=== PATIENT | female | born 1960 | race Caucasian/White ===

== ENCOUNTER 2016-11-27 07:15 | Inpatient (IN) | payer MEDICAID, MEDICARE ==
[2017-01-21] MEDS ORDERED: Scopolamine 1.5 MG Transdermal Patch TOP SCH (05:30)
[2017-01-21] MEDS ORDERED: Celecoxib 200 MG Cap PO ONE (05:30)
[2017-01-21] MEDS ORDERED: Gabapentin 300 MG Cap PO ONE (05:30)
[2017-01-21] MEDS ORDERED: Acetaminophen 500 MG Tab PO ONE (05:30)
[2017-01-21] MEDS ORDERED: cefOXitin 2 GM Vial ONE (06:50)
[2017-01-21] MEDS ORDERED: Bupivacaine 0.5%/EPINEPHrine 1:200,000 50 ML MDV ONE (06:50)
[2017-01-21] MEDS ORDERED: Ketamine 500 MG/5 ML MDV IV SCH (07:00)
[2017-01-21] MEDS ORDERED: Succinylcholine/Normal Saline 200 MG/10 ML Syringe ONE (07:02)
[2017-01-21] MEDS ORDERED: Dexamethasone 4 MG/ML SDV ONE (07:02)
[2017-01-21] MEDS ORDERED: Ondansetron 4 MG/2 ML SDV ONE (07:02)
[2017-01-21] MEDS ORDERED: Rocuronium 50 MG/5 ML Vial ONE (07:02)
[2017-01-21] MEDS ORDERED: Propofol 200 MG/20 ML SDV ONE (07:02)
[2017-01-21] MEDS ORDERED: fentaNYL 250 MCG/5 ML SDV ONE (07:03)
[2017-01-21] MEDS ORDERED: Neostigmine Methylsulfate 1 MG/ML 5 ML Syringe ONE (07:03)
[2017-01-21] MEDS ORDERED: Albuterol/Ipratropium 3.0-0.5 MG/3 ML Neb Soln NEB ONE (07:30)
[2017-01-21] MEDS ORDERED: Lidocaine 2% 100 MG/5 ML Syringe IVPUSH ONE (07:30)
[2017-01-21] MEDS ORDERED: Ropivacaine 56 ML, Dexamethasone 8 MG, EPINEPHrine 0.4 MG, Sodium Chloride 0.9% 21.6 ML NERVRT SCH ×4 (07:30)
[2017-01-21] MEDS ORDERED: Dextrose 5%-Lactated Ringers 1,000 ML IV SCH ×3 (07:30→17:00)
[2017-01-21] MEDS: cefOXitin 2 GM in Sodium Chloride 0.9% 50 ML IV ONE ×2 (07:37→13:08)
[2017-01-21] MEDS ORDERED: Insulin Aspart 100 Units/ML 3 ML Pen SUBCUT ONE (10:00)
[2017-01-21] MEDS ORDERED: hydrOXYzine HCl 50 MG/ML SDV IM ONE (10:42)
[2017-01-21] MEDS: Lidocaine 0.4%/D5W 2 GM/500 ML BAG IV SCH ×2 (11:20→23:48)
[2017-01-21] MEDS ORDERED: Labetalol 20 MG/4 ML Syringe IVPUSH PRN (11:43)
[2017-01-21] MEDS ORDERED: SCOPOLAMINE PATCH ASK TOP SCH (11:43)
[2017-01-21] MEDS ORDERED: Ondansetron 4 MG/2 ML SDV IVPUSH PRN (11:43)
[2017-01-21] MEDS ORDERED: hydrOXYzine HCl 50 MG/ML SDV IM PRN (11:43)
[2017-01-21] MEDS ORDERED: Metoclopramide 10 MG/2 ML SDV IV PRN (11:47)
[2017-01-21] MEDS ORDERED: diphenhydrAMINE 50 MG/ML SDV IV PRN (11:48)
[2017-01-21] MEDS ORDERED: Albuterol/Ipratropium 3.0-0.5 MG/3 ML Neb Soln INH PRN (11:50)
[2017-01-21] MEDS: Acetaminophen Soln 650 MG/20.3 ML UD Cup PO SCH ×2 (13:35→20:38)
[2017-01-21] MEDS: Pantoprazole 40 MG Vial IVPUSH SCH (13:35)
[2017-01-21] MEDS: cefOXitin 2 GM in Sodium Chloride 0.9% 50 ML IV SCH ×2 (13:35→20:38)
[2017-01-21] MEDS ORDERED: Gabapentin 250 MG/5 ML Solution ML 470 ML Bottle PO SCH (14:00)
[2017-01-21] MEDS: Albuterol/Ipratropium 3.0-0.5 MG/3 ML Neb Soln INH SCH ×2 (14:41→20:38)
[2017-01-21] MEDS: Insulin Aspart 100 Units/ML 3 ML Pen SUBCUT PRN ×2 (16:46→22:14)
[2017-01-21] MEDS: MVI, Adult with Vitamin K 10 ML, Thiamine 200 MG, Chromium/Copper/Mang/Selen/Zn 1 ML in... IV SCH ×4 (17:31)
[2017-01-21] MEDS: Heparin Sodium 5,000 Units/ML Vial SUBCUT SCH (17:31)
[2017-01-22] MEDS: cefOXitin 2 GM in Sodium Chloride 0.9% 50 ML IV SCH ×4 (02:15→21:20)
[2017-01-22] MEDS: Acetaminophen Soln 650 MG/20.3 ML UD Cup PO SCH ×4 (02:17→21:20)
[2017-01-22] MEDS ORDERED: Iohexol 647 MG/ML 50 ML SDV PO STA (02:30)
[2017-01-22] MEDS: Heparin Sodium 5,000 Units/ML Vial SUBCUT SCH ×2 (04:59→17:47)
[2017-01-22] MEDS: Insulin Aspart 100 Units/ML 3 ML Pen SUBCUT PRN ×4 (04:59→21:53)
[2017-01-22] MEDS: Albuterol/Ipratropium 3.0-0.5 MG/3 ML Neb Soln INH SCH ×4 (07:13→21:20)
--- NOTE | 2017-01-22 09:32 | CR ---
UGI wo KUB HISTORY: Eval RNY GBP FINDINGS: After administration of oral contrast, upright views were obtained. Post operative changes gastric bypass. Surgical drains in place. No evidence for leak. Contrast passes freely into proxima l small bowel loops. IMPRESSION: No evidence for leak or obstruction.
[2017-01-22] MEDS: Lisinopril 20 MG Tab PO SCH (10:24)
[2017-01-22] MEDS: Celecoxib 200 MG Cap PO SCH (10:24)
[2017-01-22] MEDS: amLODIPine 5 MG Tab PO SCH (10:24)
[2017-01-22] MEDS: SCOPOLAMINE PATCH CHECK TOP SCH (10:25)
--- NOTE | 2017-01-22 10:46 | PN ---
DATE OF SERVICE: 01/22/2017 SUBJECTIVE: Kadi upper GI was normal this morning. Her pain has been well managed. She has been ambulating. She did have quite a bit in the way of urinary frequencies, so Wilson catheter was put back in. She is tolerating a step-1 diet. Vital signs otherwise have been stable. REVIEW OF SYSTEMS: Remainder of review of systems negative for any pertinent positives and negatives. OBJECTIVE: GENERAL: Kadi Faustin is a 56-year-old female. She is alert and orientated. VITAL SIGNS: TPR is 100.5, 95, 16, blood pressure 154/76. HEENT: Negative. NECK: Supple. HEART: Regular rate and rhythm. LUNGS: Clear. ABDOMEN: Dressings dry and intact. Abdominal binder is on. EXTREMITIES: SCDs are on, and there is no peripheral edema. ASSESSMENT: Removal of laparoscopic gastric band system, of laparoscopic Anmol-en- Y gastric bypass surgery, liver biopsy, and partial gastrectomy for laparoscopic gastric band status with intolerance to lap band, morbid obesity, hepatomegaly, and devascularized portion of the fundus, date of surgery 01/21/2017. PLAN: Discontinue Wilson. Discontinue continuous pulse ox and telemetry after lidocaine is in, for a step-2 gastric bypass diet without cereal for lunch. Blood sugars have been 327, 301, and 341, so start metformin 1000 mg b.i.d. Other home medications that were started include Norvasc 5 mg daily, Spiriva 1 capsule inhalation daily, lisinopril 20 mg p.o. daily, ProAir 2 inhalations q.i.d. Good pulmonary toilet encouraged. Dressing off, may shower. We will evaluate p.r.n. or in a.m. Shauna العلي PA-C /[id number]
[2017-01-22] MEDS: Pantoprazole 40 MG Vial IVPUSH SCH (14:06)
[2017-01-22] MEDS: MVI, Adult with Vitamin K 10 ML, Thiamine 200 MG, Chromium/Copper/Mang/Selen/Zn 1 ML in... IV SCH ×8 (14:09→15:18)
[2017-01-22] MEDS ORDERED: Lactated Ringers 1,000 ML IV SCH (16:15)
[2017-01-22] MEDS: metFORMIN 500 MG Tab PO SCH (16:26)
[2017-01-23] MEDS: cefOXitin 2 GM in Sodium Chloride 0.9% 50 ML IV SCH ×2 (02:30→08:40)
[2017-01-23] MEDS: Acetaminophen Soln 650 MG/20.3 ML UD Cup PO SCH ×2 (02:30→08:41)
[2017-01-23 02:37] VITALS: BP 150/90
[2017-01-23] MEDS: Insulin Aspart 100 Units/ML 3 ML Pen SUBCUT PRN ×2 (05:34→10:53)
[2017-01-23] MEDS: Heparin Sodium 5,000 Units/ML Vial SUBCUT SCH (06:01)
[2017-01-23] MEDS: Albuterol/Ipratropium 3.0-0.5 MG/3 ML Neb Soln INH SCH (07:25)
[2017-01-23] MEDS: metFORMIN 500 MG Tab PO SCH (08:40)
[2017-01-23] MEDS: Celecoxib 200 MG Cap PO SCH (08:41)
[2017-01-23] MEDS: amLODIPine 5 MG Tab PO SCH (08:41)
[2017-01-23] MEDS: Lisinopril 20 MG Tab PO SCH (08:42)
[2017-01-23] MEDS: SCOPOLAMINE PATCH CHECK TOP SCH (08:53)
[2017-01-23] MEDS ORDERED: Cyanocobalamin (Vitamin B12) 1,000 MCG/ML SDV IM ONE (09:00)
--- NOTE | 2017-01-24 00:32 | DISCH ---
ADMISSION DIAGNOSES: Morbid obesity, diabetes mellitus, last hemoglobin A1c 7.4, coronary artery disease, dyslipidemia, essential hypertension, history of gastroesophageal reflux disease, headaches, hypothyroidism, myocardial infarct at age less than 60, hyperlipidemia, low back pain, tobacco dependence in remission, and alcohol abuse, episodic drinking behavior. DISCHARGE DIAGNOSES: Removal of laparoscopic gastric band system, laparoscopic Anmol-en-Y gastric bypass surgery, liver biopsy, and partial gastrectomy for laparoscopy gastric band status with intolerance to lap band, morbid obesity, hepatomegaly, devascularized portion of the fundus. Date of surgery 01/21/2017. HISTORY: Kadi Faustin is a 56-year-old female with longstanding history of morbid obesity and increasingly comorbidities. After preoperative evaluation and discussion of possible risks and possible complications, she wished to proceed with surgical procedure. HOSPITAL COURSE: Kadi had her surgery on 01/21/2017. She had no operative complications. On postop day #1, she was started on step 2 gastric bypass diet without cereal. Her blood sugars on postop day #1 were in the 300. She was on metformin 1000 mg b.i.d. and Januvia 100 mg. At the time of discharge, blood sugars were 231, 235. On postop day #2, Kadi received vitamin B12 1000 mcg IM injection, dietary instructions. Her vital signs were stable. Her activity was good and she was ready to be discharged to home. PHYSICAL EXAMINATION: GENERAL: Kadi Faustin is a 56-year-old female. VITAL SIGNS: Height is 5 feet 4 inches. Weight is 247 pounds. TPR is 99.5, 98, 16. Blood pressure is 150/90. HEENT: Negative. NECK: Supple. HEART: Regular rate and rhythm. LUNGS: Clear. ABDOMEN: 4x4 over TRISTEN drain site. Incisions look good. Sutures in place. Soft, minimally tender. Abdominal binder is on. EXTREMITIES: Without peripheral edema. DISPOSITION: Discharged to home. CONDITION: Stable and improving. FOLLOWUP APPOINTMENT: With Shauna العلي PA-C, on 01/30/2017 at 11:00 a.m. NEW PRESCRIPTIONS: Tylenol 650 mg oral q.6 hours p.r.n. pain, Celebrex 200 mg orally p.o. once daily, #7, Januvia 100 mg oral daily #30, metformin immediate release 1000 mg oral twice daily with meals #60. At time of discharge, she is to continue taking aspirin 81 mg p.o. daily, albuterol inhaler 2 puffs four times a day p.r.n., vitamin B12 1000 mcg sublingual daily, lisinopril 20 mg oral daily, multivitamin chewable complete 1 tablet twice daily, potassium gluconate 595 mg oral daily, Norvasc 5 mg oral daily, Lipitor 40 mg oral daily, and Spiriva inhaler one capsule inhaled daily. DIET: After discharge, step-2 gastric bypass diet without cereal. Drink 8 to 10 glasses of water a day. ACTIVITY: As tolerated. No lifting greater than 10 pounds for 2 weeks. Shower bathing, may shower. Notify provider if any fever, increased pain, nausea, or vomiting. Keep site clean and dry. Wear abdominal binder for 2 weeks and then as tolerated. SPECIAL INSTRUCTION: Use incentive spirometer 10 times every hour while awake for 2 weeks. Check blood sugars twice a day.
--- NOTE | 2017-01-24 08:37 | OR ---
DATE OF PROCEDURE: 01/21/2017 PREOPERATIVE DIAGNOSIS: Morbid obesity with intolerance of laparoscopic adjustable gastric band. POSTOPERATIVE DIAGNOSES: 1. Morbid obesity with intolerance of laparoscopic adjustable gastric band. 2. Hepatomegaly. 3. Devascularized portion of gastric fundus status post takedown of gastric band. OPERATIVE PROCEDURES: Diagnostic laparoscopy with: 1. Removal of laparoscopic adjustable gastric band system (84350). 2. Formation of a Anmol-en-Y gastric bypass with long limb gastroenterostomy (09533). 3. A Woody-Cut needle liver biopsy (70634). 4. Partial gastrectomy (55171). ANESTHESIA: General. LABORATORY SUPERVISOR: Shauna العلي PA-C. INDICATION FOR PROCEDURE: This is a 56-year-old with longstanding morbid obesity. She had laparoscopic adjustable gastric band placed, but has not tolerated that very well. In addition, she has recurrent morbid obesity and progressively worsening type 2 diabetes. Given this, the band was to be removed and the patient converted to a Anmol-en-Y gastric bypass. The potential risks of the procedure including bleeding, infection, leaks from various GI tract closures, problems with bowel obstruction over time, as well as the possibility of cardiopulmonary, septic, or hemorrhagic complications potentially leading to were discussed, and the patient wishes to proceed. Additionally, the patient had recent appendicitis which was treated nonoperatively and after discussion, the plan will be to look down into the area of the cecum. If the appendix is easily visualized and dissected free, we will remove it. Otherwise, it will likely be that it's matted down and involving intense inflammatory response, we will leave it in place for today. DETAILS OF PROCEDURE: The patient was taken to the operating room and placed in a supine position. After general endotracheal anesthesia was induced, the abdomen was prepped and draped. The patient was converted to lithotomy position. Bilateral subcostal transversus abdominis plane blocks were placed using ropivacaine, dexamethasone, epinephrine in 40 mL of saline on each side. This was done using continuous ultrasound guidance. Wilson catheter was inserted along the gastrointestinal catheter, and the abdomen was prepped and draped. A 15 cm inferior and 5 cm left of xiphoid process, transverse incision was made. The peritoneal cavity was entered under direct vision with an Optiview trocar and inflated to 15 mmHg of CO2. Laparoscope was then reinserted. No underlying trocar insertion site injuries were seen. Following this, 5 additional trocars were placed across the upper and mid abdomen, and general exploration was undertaken. The patient was noted to have marked hepatomegaly and Woody-Cut liver biopsy was obtained from left lobe liver. Minimal bleeding from the biopsy sites was controlled with electrocautery. Attention was then taken to the right lower quadrant. The area of cecum was identified. As one approached the inferior aspect of the cecum, it became evident that there was a dense inflammatory response, and this area was not at all mobile. It was felt that trying to get the appendix out at this point may result in significant injury to the cecum or just the small bowel and given the patient's clinical status of appendicitis more or less resolved, we would leave the appendix in place at this time. At this point, the omentum was divided in the midline up to the level of the transverse colon. The small bowel was identified at ligament of Treitz and traced 200 cm distal to that point, was divided transversely with a TOSHIA stapler. Small bowel was then traced out additional 200 cm where the [id number] enteroenterostomy was accomplished with the internal firing of the Endo-TOSHIA 60 mm stapler. Common opening was then closed transversely with the same stapler and angles anastomosed. Mesenteric defect approximated with some 0 Ethibond stitch along with a fibrin sealant. Divided end of the Anmol limb was then for a few centimeters, which allowed an antecolic position of the Anmol limb up to the level of the esophagogastric junction without tension. The liver was then retracted anteriorly. Some adhesions between the liver and the band area were taken down. At that point, the course of the band were detached, particularly around the buckle was divided with electrocautery. This allowed the band to be freed up from within its capsule. The band was then divided and removed from the capsule, detached and then removed from the abdomen in 2 parts after the port tubing had been cut at an oblique angle. The latter being done so as to be able to confirm the entire port tubing was removed along with the port subsequently. Using TOSHIA black loads, after peeling off some of the capsule within the imprint of the band, the stomach was divided at that level with 3 firings of the TOSHIA stapler. At the conclusion of this, there was a large portion of the gastric fundus, which was devascularized, and this was then excised by means of black and purple loads as well and delivered from the field at the end of the case through the left lateral trocar site. The anvil of a 21 mm EEA stapler was then attached to [place] sump tube. The latter was brought down through the mouth and taken out through a small opening in the gastric pouch, allowing the anvil likewise to be pulled down to within the gastric pouch. The divided end of Anmol limb was opened and passed several centimeters into the Anmol limb, brought up the anvil and united with it, thus creating the gastrojejunostomy. Upon removal of the stapler, double donuts of mucosa were noted within it. Small bowel was closed off with a vascular staple line. Gastrojejunostomy was then reinforced with some 3-0 Vicryl seromuscular stitch along with fibrin sealant. Leak test was accomplished with injection of 120 mL of air in the gastric pouch while submerged with cefoxitin-containing saline solution. No leaks were identified. One Steven-Wallace drain was then placed in the left mid subcostal trocar site and placed adjacent to gastrojejunostomy with no further problems noted. Trocars were removed, and the peritoneal cavity was deflated. Incision were closed with some 4-0 Vicryl skin stitch. The attention was then taken to the removal of the port. The left lateral trocar site on the left side was potentially made such that we could use that incision for removal of port. This was enlarged somewhat, and the port was then dissected free from the surrounding soft tissues using electrocautery and removed along with the remaining port tubing with the oblique angle of the port tubing having been cut and confirmed. That incision was then closed with some 3-0 and 4-0 Vicryl stitch deep and 4-0 Vicryl skin stitch as well. The patient was taken to the recovery room in satisfactory condition. Physician assistant professor of biochemistry, Shauna العلي, played an essential role in assisting in this case, helping to retract structures as needed, positioning the patient, as well as suturing and cutting sutures when indicated. Her presence improved patient safety and decreased the operative time. Alok Cabral MD /[id number]
== END 2017-01-23 11:00 | disposition home or self-care (01) | DRG 620 ==
LOC: JP.MS 01-21 05:47 → JP.SDS 01-21 05:47 → EDSTATUS 01-21 07:15 → JP.2SS 01-21 11:20
PROVIDERS: ADMIT Surgery; ATTEND Surgery
PROC: 0DB84ZZ Excision of Small Intestine, Percutaneous Endoscopic Approach (ICD-10-PCS; principal; 2017-01-21)
PROC: 0DB64ZZ Excision of Stomach, Percutaneous Endoscopic Approach (ICD-10-PCS; principal; 2017-01-21)
PROC: 0DB63ZZ Excision of Stomach, Percutaneous Approach (ICD-10-PCS; principal; 2017-01-21)
PROC: 0FB24ZX Excision of Left Lobe Liver, Percutaneous Endoscopic Approach, Diagnostic (ICD-10-PCS; principal; 2017-01-21)
PROC: 0DP64CZ Removal of Extraluminal Device from Stomach, Percutaneous Endoscopic Approach (ICD-10-PCS; principal; 2017-01-21)
PROC: 3E0T3BZ Introduction of Anesthetic Agent into Peripheral Nerves and Plexi, Percutaneous Approach (ICD-10-PCS; principal; 2017-01-21)
PROC: 0D164ZA Bypass Stomach to Jejunum, Percutaneous Endoscopic Approach (ICD-10-PCS; principal; 2017-01-21)
DX: E66.01 Morbid (severe) obesity due to excess calories (principal); K95.09 Other complications of gastric band procedure; Z68.42 Body mass index [BMI] 45.0-49.9, adult; Z98.84 Bariatric surgery status; Y84.8 Other medical procedures as the cause of abnormal reaction of the patient, or of later complication, without mention of misadventure at the time of the procedure; R16.0 Hepatomegaly, not elsewhere classified; I10 Essential (primary) hypertension; J44.9 Chronic obstructive pulmonary disease, unspecified; Z87.891 Personal history of nicotine dependence; I25.10 Atherosclerotic heart disease of native coronary artery without angina pectoris; Z95.5 Presence of coronary angioplasty implant and graft; E11.9 Type 2 diabetes mellitus without complications; E78.5 Hyperlipidemia, unspecified; I25.2 Old myocardial infarction; Z79.84 Long term (current) use of oral hypoglycemic drugs; Z79.82 Long term (current) use of aspirin; Z87.898 Personal history of other specified conditions; K21.9 Gastro-esophageal reflux disease without esophagitis; F10.10 Alcohol abuse, uncomplicated
CPT/HCPCS: 36415; 51798; 74240; 74240-26; 82962; 86850; 86900; 86901; 88300; 88307; 88313; 94640-76; A9270-GY; C9113; J0171; J0694; J1100; J1644; J2001; J2405; J2704; J2795; J3010; J3410; J3411; J3420; J7030; J7040; J7042; J7050; J7120; J7620; Q9967

== ENCOUNTER 2017-04-15 08:23 | Day surgery (SDC) | payer MEDICARE, SELFPAY ==
[2017-04-15] MEDS ORDERED: Cyanocobalamin (Vitamin B12) 1,000 MCG/ML SDV IM ONE (09:15)
[2017-04-15] MEDS ORDERED: Lactated Ringers 1,000 ML IV SCH (09:15)
[2017-04-15] MEDS ORDERED: Glycopyrrolate 0.2 MG/ML 2 ML SYRINGE IVPUSH ONE (10:15)
[2017-04-15] MEDS ORDERED: MVI, Adult with Vitamin K 10 ML, Thiamine 200 MG, Chromium/Copper/Mang/Selen/Zn 1 ML in... IV ONE ×4 (10:30)
[2017-04-15] MEDS ORDERED: Propofol 200 MG/20 ML SDV ONE (11:17)
[2017-04-15] MEDS ORDERED: Midazolam 1 MG/ML 2 ML SDV ONE (11:17)
[2017-04-15] MEDS ORDERED: fentaNYL 100 MCG/2 ML SDV ONE (11:17)
[2017-04-15 12:28] VITALS: BP 152/89
--- NOTE | 2017-04-24 18:38 | OR ---
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 POSTOPERATIVE DIAGNOSIS: Stricture of gastrojejunostomy. OPERATIVE PROCEDURE: Upper GI endoscopy with dilation of gastrojejunostomy ( 58467). ANESTHESIA: IV sedation. INDICATION FOR PROCEDURE: The patient is status post conversion of lap band status to a Anmol-en-Y gastric bypass and now presents with symptoms suggestive of stricturing at her gastrojejunostomy. Plan is to proceed with an upper GI endoscopy with dilation as indicated. Potential risks of the procedure including bleeding and perforation were discussed, and the patient wishes to proceed. DETAILS OF THE PROCEDURE: The patient was taken to the operating room and placed in a left lateral decubitus position. IV sedation was administered, after which the upper GI endoscope was passed orally through the length of the esophagus and into the gastric pouch. The patient was noted to have a fairly tight stricture of the gastrojejunostomy measuring around 4 mm to 5 mm. A Bard gastrointestinal catheter was centered across the anastomosis under fluoroscopic surveillance and inflated to 36-[place] size. This was inflated at stage 1, i.e. at 30 psi and then after one minute, the balloon catheter was deflated and the scope was easily then passed through the anastomosis. No complications were noted. The scope was then withdrawn. The procedure was concluded. There were no evident complications. Alok Cabral MD /[id number] MTDD
== END 2017-04-15 12:48 | disposition home or self-care (01) ==
LOC: JP.SDS 08:23
PROVIDERS: ATTEND Surgery
DX: K91.89 Other postprocedural complications and disorders of digestive system (principal); I25.10 Atherosclerotic heart disease of native coronary artery without angina pectoris; J44.9 Chronic obstructive pulmonary disease, unspecified; E11.9 Type 2 diabetes mellitus without complications; K21.9 Gastro-esophageal reflux disease without esophagitis; J30.2 Other seasonal allergic rhinitis; Z98.84 Bariatric surgery status
CPT/HCPCS: 43245; J2250; J2704; J3010; J3411; J3420; J7120

== ENCOUNTER 2017-06-04 07:35 | Day surgery (SDC) | payer MEDICARE, SELFPAY ==
[2017-06-04] MEDS ORDERED: fentaNYL 100 MCG/2 ML SDV ONE (08:16)
[2017-06-04] MEDS ORDERED: Propofol 200 MG/20 ML SDV ONE (08:16)
[2017-06-04] MEDS ORDERED: Midazolam 1 MG/ML 2 ML SDV ONE (08:16)
[2017-06-04] MEDS ORDERED: Lactated Ringers 1,000 ML IV ONE (08:24)
[2017-06-04] MEDS ORDERED: Cyanocobalamin (Vitamin B12) 1,000 MCG/ML SDV IM ONE (09:00)
[2017-06-04] MEDS ORDERED: Glycopyrrolate 0.2 MG/ML 2 ML SDV IVPUSH ONE (09:30)
[2017-06-04] MEDS ORDERED: MVI, Adult with Vitamin K 10 ML, Thiamine 200 MG, Chromium/Copper/Mang/Selen/Zn 1 ML in... IV ONE ×4 (09:30)
[2017-06-04 10:34] VITALS: BP 165/99
--- NOTE | 2017-06-04 22:01 | OR ---
DATE OF PROCEDURE: 06/04/2017 PREOPERATIVE DIAGNOSIS: Dysphagia, status post Anmol-en-Y gastric bypass. POSTOPERATIVE DIAGNOSES: 1. Dysphagia related to a stricture at the gastrojejunostomy. 2. Foreign body (ingested food) lodged within esophagus. OPERATIVE PROCEDURES: Upper GI endoscopy with: 1. Dilation of gastrojejunostomy (66103). 2. Removal of esophageal foreign body (09154). ANESTHESIA: IV sedation. INDICATION FOR PROCEDURE: This is a 57-year-old female status post conversion of band status to Anmol-en-Y gastric bypass on 01/21/2017. She had a stricture dilated on 04/29/2017 and now presents with some dysphagia. Plan is to proceed with an upper GI endoscopy with biopsies and/or dilation as indicated. Potential risks including bleeding and perforation were discussed, and the patient wishes to proceed. DETAILS OF PROCEDURE: The patient was taken to the operating room and placed in a left lateral decubitus position. IV sedation was administered, after which the upper GI endoscope was passed orally through the length of the esophagus and into the gastric pouch. The patient was noted to have a moderate stricture of the gastrojejunostomy with an estimated diameter of that anastomosis being around 7 mm. There was also an area of ingested food which seemed to be acting like a ball valve. The gastrointestinal catheter was then centered across the anastomosis and inflated to 36-[place] size. This resulted in satisfactory dilation without complication. The food was then from that point mobilized downward out of the esophagus and pouch and into the small bowel. At that point, no further problems were noted. The scope was withdrawn. The procedure was concluded. The patient was taken to the recovery room in satisfactory condition. The patient was started on Protonix 40 mg few days ago by Shauna العلي. We will continue the 40 mg daily dose for the next month or so to help minimize any inflammation in this area. Alok Cabral MD /[id number]
== END 2017-06-04 11:40 | disposition home or self-care (01) ==
LOC: JP.SDS 07:35
PROVIDERS: ATTEND Surgery
DX: K91.89 Other postprocedural complications and disorders of digestive system (principal); T18.128A Food in esophagus causing other injury, initial encounter; J44.9 Chronic obstructive pulmonary disease, unspecified; I25.10 Atherosclerotic heart disease of native coronary artery without angina pectoris; I25.2 Old myocardial infarction; K21.9 Gastro-esophageal reflux disease without esophagitis; E11.9 Type 2 diabetes mellitus without complications; E78.00 Pure hypercholesterolemia, unspecified; I73.9 Peripheral vascular disease, unspecified; Z98.84 Bariatric surgery status
CPT/HCPCS: 43245; 43247; J2250; J2704; J3010; J3411; J3420; J7120; J3490